=== PATIENT | male | born 1950 | race Hispanic/Latino ===

== ENCOUNTER 2018-04-25 18:08 | Emergency (ER) | payer OTHER ==
[~2018-04-25] VITALS: Ht 172.7 cm; Wt 71.5 kg
[2018-04-25] MEDS ORDERED: ERYTHROMYC1 APPLICAT RIGHT EYE (22:08)
[2018-04-25 22:27] VITALS: BP 140/88
== END 2018-04-25 22:27 | disposition home or self-care (01) ==
LOC: EME 18:08
DX: H10.32 Unspecified acute conjunctivitis, left eye (principal); F17.200 Nicotine dependence, unspecified, uncomplicated
CPT/HCPCS: 99281; 99283